=== PATIENT | female | born 1950 | race Caucasian/White ===

== ENCOUNTER → 2018-11-29 | Outpatient (CLI) | payer MEDICARE, OTHER ==
[~2018-11-29] MED LIST: IOPAMIDOL 76% 100 ML INFUS BTL 100 ML ONE; NS(*) 0.9% 50 ML BAG 50 ML ONE
--- NOTE | 2018-11-29 14:24 | RADIOLOGY IMAGING REPORT ---
FACILITY: [facility] PATIENT NAME: Olga Coelho : 1950 MR: [id number] V: [id number] EXAM DATE: ORDERING PHYSICIAN: YUMIKO BRUNO TECHNOLOGIST: Location: [facility] Patient: Olga Coelho : 1950 Visit/Account:[id number] Date of Sevice: 11/29/2018 CT CTA CHEST W & W/O CON HISTORY: Elevated d-dimer ADDITIONAL HISTORY: None. TECHNIQUE: CTA chest with intravenous contrast. Axial imaging acquired following administration of IV contrast timed for maximum opacification of the pulmonary arterial vasculature. Slab 3-D MIP felicitas nstructed images were also created for further evaluation and interpretation. Reconstruction of the s [facility] data set includes multiplanar 2-D in the sagittal and coronal planes and 3-D reconstructed tristian nal slab MIP series. 3-D images were created by the technologist.Dose Lowering Technique One of the following dose optimization techniques was utilized in the performance of this exam: Autom ated exposure control; adjustment of the mA and/or kV according to the patient's size; or use of an i terative reconstruction technique. Specific details can be referenced in the facility's radiology C T exam operational policy. CONTRAST: 75 mL [id number] COMPARISON: Two view chest performed today FINDINGS: Lungs/pleura: There are two masses in the right upper lobe the more peripheral of the two is relativ anat well-circumscribed measuring 1.4 x 1.2 cm just medial is an irregular mass measuring approximatel y 1.3 x 1.6 cm. There appear to be several other smaller masses just medial and inferior to this mas s is well There is a 3 mm subpleural nodule lateral aspect left lower lobe best seen on image 181 of series 6 t here is an additional 4 mm potential nodule abutting the superior aspect of the major fissure on the left best seen on image 118 There are patchy groundglass opacities scattered throughout the lower lobes and to lesser extent uppe r lobes. No evidence of pleural effusions. Heart/vessels: There is a small amount of thrombus in the subsegmental arterial branches to the righ t lower lobe. There is a trace pericardial effusion and cardiomegaly Mediastinum/lymph nodes: Negative. Visualized upper abdomen: Negative Bones/soft tissues: There spondylotic changes of the thoracic spine Additional findings: None IMPRESSION: There are two dominant masses in the right upper lobe one measuring 1.4 x 1.2 cm one measuring 1.3 x 1.6 cm with several smaller adjacent nodules. This finding is concerning for potential malignancy. [employer] FOLLOW-UP GUIDELINES FOR NEWLY DETECTED INCIDENTAL NODULES IN PERSONS 35 YEARS OF AGE OR OLDER. *These recommendations do NOT apply to lung cancer screening, patients with immunosuppression or zeina ents with a known primary malignancy. SOLITARY SOLID NODULE If nodule size is < 6 mm: * Low risk patient ? No routine follow-up. * High risk patient ? Optional CT at 12 months. If nodule size is 6-8 mm: * Low risk patient ? CT at 6-12 months, then consider CT at 18-24 months if no change. * High risk patient ? CT at 6-12 months, then CT at 18-24 months if no change. If nodule size is > 8 mm: * Low risk patient ? Consider CT at 3, 9 and 24 months (if no change), PET/CT, tissue sampling or a combination thereof. * High risk patient ? Consider CT at 3, 9 and 24 months (if no change), PET/CT, tissue sampling, or a combination thereof. LOW RISK PATIENT: Minimal or absent history of tobacco use and of other known risk factors. HIGH RISK PATIENT: Tobacco use, family history of lung cancer, upper pulmonary lobe location of nodul e, presence of emphysema, pulmonary fibrosis, older age. Shaunhotommy H, Claudia DP, Kaio JM, et al. Guidelines for Management of Incidental Pulmonary Nodules Dete cted on CT Images: From the [employer] 2017. Radiology. [facility] Patchy groundglass opacities scattered throughout the lower lobes and to lesser extent upper lobes. lthough this could be chronic or related to dependent change depressed diagnosis would also include an infectious/inflammatory processThere is a small volume of pulmonary emboli in the subsegmental art erial branches to the right lower lobe Trace pericardial effusion and cardiomegaly Results were called to YUMIKO BRUNO at 11/29/2018 2:19 PM. Report Dictated By: Merary David MD at 11/29/2018 2:00 PM Report E-Signed By: Merary David MD at 11/29/2018 2:20 PM WSN:[email or web address]
== END ==
LOC: CT 12:38
PROVIDERS: ATTEND Nurse Practitioner Family
DX: R94.8 Abnormal results of function studies of other organs and systems (principal)
CPT/HCPCS: 71275; J7050; Q9967

== ENCOUNTER → 2018-11-29 | Outpatient (REF) | payer MEDICARE, OTHER ==
[2018-11-29 11:04] LABS: PLATELET COUNT, AUTOMATED 158 K/uL (150-450)
== END ==
PROVIDERS: ATTEND Nurse Practitioner Family
DX: R06.00 Dyspnea, unspecified (principal)
CPT/HCPCS: 82040; 82247; 82310; 82374; 82435; 82565; 82947; 84075; 84132; 84155; 84295; 84450; 84460; 84484; 84520; 85025; 85379

== ENCOUNTER → 2018-12-02 | Outpatient (REF) | payer MEDICARE, OTHER ==
[2018-12-02 14:25] LABS: PLATELET COUNT, AUTOMATED 186 K/uL (150-450)
== END ==
PROVIDERS: ATTEND Nurse Practitioner Family
DX: Z01.818 Encounter for other preprocedural examination (principal)
CPT/HCPCS: 82040; 82247; 82310; 82374; 82435; 82565; 82947; 84075; 84132; 84155; 84295; 84450; 84460; 84520; 85025